=== PATIENT | male | born 2000 | race Caucasian/White ===

== ENCOUNTER 2018-08-24 18:37 | Emergency (ER) | payer BC, OTHER ==
[2018-08-24] MEDS ORDERED: Fleet Enema 133 ML BOT ONE (19:07)
== END 2018-08-24 19:20 | disposition home or self-care (01) ==
LOC: NAV ERS 18:37
DX: K59.00 Constipation, unspecified (principal); F17.210 Nicotine dependence, cigarettes, uncomplicated
CPT/HCPCS: 99283